=== PATIENT | female | born 1945 | race Caucasian/White ===

== ENCOUNTER → 2016-02-22 | Outpatient (CLI) | payer OTHER ==
[2016-02-22 11:19] LABS: LDL CHOLESTEROL,CALCULATED 60.6 mg/dL
== END ==
LOC: LAB 10:27
PROVIDERS: ATTEND Family Medicine
DX: E03.9 Hypothyroidism, unspecified (principal); E11.9 Type 2 diabetes mellitus without complications; E78.5 Hyperlipidemia, unspecified
CPT/HCPCS: 36415; 80061; 84443; 85018

== ENCOUNTER → 2016-02-24 | Outpatient (CLI) | payer OTHER ==
[2016-02-24 14:50] LABS: BILIRUBIN,TOTAL 0.7 mg/dL (0.3-1.2); TOTAL PROTEIN 7.7 g/dL (6.1-8.0)
[2016-02-26 06:53] LABS: HEMOGLOBIN A1C 7.42 % (4.2-6.0); MEAN BLOOD GLUCOSE (CALC) 161.086 mg/dL
== END ==
LOC: MOB LAB 12:23
PROVIDERS: ATTEND Family Medicine
DX: E11.9 Type 2 diabetes mellitus without complications (principal); E78.5 Hyperlipidemia, unspecified; R53.83 Other fatigue
CPT/HCPCS: 36415; 80076; 82306; 82550; 82728; 83036; 83540; 83550

== ENCOUNTER → 2016-03-20 | Outpatient (CLI) | payer OTHER ==
--- NOTE | 2016-03-20 21:52 | DI ---
CT BONE DENSITOMETRY OF THE SPINE AND HIP, 03/20/2016 3:37 PM : Clinical History: Asymptomatic post menopausal patient. Screening. Previous Exam: 11/14/2011. 3D Quantitative CT (QCT) Bone Mineral Densitometry: The [place] scans are normal. Low dose scans are sampled through the midbodies of L1 and L2. Average bone mineral density (BMD) is 87.4 mg/mL corresponding to a volumetric T-score of -3.1, and Z-score o f -0.1. The [employer]'s (ACR) volumetric QCT BMD conversion table categorizes thi s patient as having osteopenia of the lumbar spine. The previous exam gave a bone mineral density of 80.[address] X-Ray Absorptiometry (CTXA) Bone Mineral Densitometry of the Left Hip: Total hip BMD: 772 mg/cm2 T-score: -1.3 Z-score: 0.0 Femoral neck BMD: 667 mg/cm2 T-score: -1.2 Z-score: 0.3 Note: T-scores of the spine and hip are discordant approximately 40% of the times. Changes in actual QCT or CTXA/DEXA measurements are more reliable in assessment of change in BMD status rather than chris nges in T-scores. READIN. The QCT lumbar spine BMD value by ACR's 3D volumetric to 2D areal conversion categorizes this pat ient as having osteopenia of the lumbar spine. The QCT spine T-score is -3.1, indicating this patient has osteoporosis of the lumbar spine. 2. The CTXA total hip and femoral neck BMD T-scores are -1.3 and -1.2, respectively. The left total hip T-score indicates this patient has osteopenia of the total hip.
== END ==
LOC: CT 15:25
PROVIDERS: ATTEND Family Medicine
DX: Z78.0 Asymptomatic menopausal state (principal); Z13.820 Encounter for screening for osteoporosis
CPT/HCPCS: 77078

== ENCOUNTER → 2016-03-30 | Outpatient (CLI) | payer OTHER | LOC: MMPC 09:00 | DX: J06.9 Acute upper respiratory infection, unspecified (principal); H65.03 Acute serous otitis media, bilateral; J44.1 Chronic obstructive pulmonary disease with (acute) exacerbation; Z87.891 Personal history of nicotine dependence | CPT/HCPCS: 99213; G0463 ==

== ENCOUNTER → 2016-04-03 | Outpatient (CLI) | payer OTHER ==
--- NOTE | 2016-04-03 13:01 | DI ---
XR CXR 2VW PA/LAT,04/03/2016 12:12 PM: Clinical History: Low oxygen saturation levels. Previous Exam: September 14, 2013 Findings: PA and lateral views of the chest are obtained, and demonstrate some stable flattening of the hemidia phragms. There is density within the right middle lobe consistent with an early pneumonia. Impression: Early right middle lobe pneumonia.
== END ==
LOC: MOB RAD 12:16
PROVIDERS: ATTEND Nurse Practitioner Family
DX: R79.81 Abnormal blood-gas level (principal); J18.9 Pneumonia, unspecified organism; R05 Cough
CPT/HCPCS: 71020

== ENCOUNTER → 2016-04-04 | Outpatient (CLI) | payer OTHER | LOC: MMPC 09:00 | PROVIDERS: ATTEND Family Medicine | DX: R09.89 Other specified symptoms and signs involving the circulatory and respiratory systems (principal); R05 Cough; Z78.0 Asymptomatic menopausal state; R79.81 Abnormal blood-gas level; Z87.891 Personal history of nicotine dependence | CPT/HCPCS: 99214; G0463 ==

== ENCOUNTER → 2016-04-18 | Outpatient (CLI) | payer OTHER ==
[2016-04-18 15:48] LABS: BASOPHILS # (AUTO) 0.11 10*3/UL; BASOPHILS % (AUTO) 1.5 % (0-1); EOSINOPHILS % (AUTO) 3.7 % (0-8); HEMATOCRIT 37.6 % (37.0-47.0); HEMOGLOBIN 11.5 g/dL (12.0-16.0); IMM GRAN % (AUTO) 0.3 % (0-5); IMM GRAN# (AUTO) 0.02 10*3/UL; LYMPHOCYTES # (AUTO) 2.01 10*3/uL; LYMPHOCYTES % (AUTO) 26.6 % (10-50); MEAN CORPUSCULAR HEMOGLOBIN 28.3 PG (27-31); MEAN CORPUSCULAR HGB CONC 30.6 g/dL (33-37); MEAN PLATELET VOLUME 11.5 FL (7.4-12.2); MONOCYTES # (AUTO) 0.61 10*3/UL (0.3-0.8); MONOCYTES % (AUTO) 8.1 % (5-15); NEUTROPHILS # (AUTO) 4.53 10*3/UL; NEUTROPHILS % (AUTO) 59.8 % (50-80); RDW COEFFICIENT OF VARIATION 19.2 % (11.5-14.5); RED BLOOD COUNT 4.07 10^6/uL (4.20-5.40); WHITE BLOOD COUNT 7.56 10^3/uL (4.8-10.8)
[2016-04-18 15:54] LABS: PLATELET MORPHOLOGY COMMENT NORMAL MORPHOLOGY (NORM)
--- NOTE | 2016-04-18 16:30 | DI ---
PA /LATERAL CHEST X-RAY, 04/18/2016 1:17 PM : Clinical History: Hypoxia. Previous Exam: 04/03/2016. There is no acute soft tissue or bony abnormality. Heart size is normal. There is no acute infiltrate . On the lateral view, there is thickening versus fluid involving either the right or left major fiss ure and this is more prominent than on the previous study. Mediastinal structures are normal. There a re no pulmonary nodules. Readin. There is no acute infiltrate or effusion. No obvious evidence of underlying chronic lung disease is present. 2. Either the right or the left major fissure is more prominent. This can be secondary to fluid vers us scarring.
== END ==
LOC: LAB 15:10
PROVIDERS: ATTEND Family Medicine
DX: J18.9 Pneumonia, unspecified organism (principal); I50.9 Heart failure, unspecified
CPT/HCPCS: 36415; 71020; 83880; 85025

== ENCOUNTER → 2016-04-19 | Outpatient (CLI) | payer OTHER | LOC: MMPC 09:00 | PROVIDERS: ATTEND Family Medicine | DX: J01.30 Acute sphenoidal sinusitis, unspecified (principal); R09.02 Hypoxemia; R05 Cough | CPT/HCPCS: 99214; G0463 ==

== ENCOUNTER → 2016-05-15 | Outpatient (CLI) | payer OTHER | LOC: MMPC 09:00 | PROVIDERS: ATTEND Family Medicine | DX: E11.9 Type 2 diabetes mellitus without complications (principal); I10 Essential (primary) hypertension; E78.5 Hyperlipidemia, unspecified; R19.7 Diarrhea, unspecified; E03.9 Hypothyroidism, unspecified | CPT/HCPCS: 99214; G0463 ==

== ENCOUNTER → 2016-05-16 | Outpatient (CLI) | payer OTHER | LOC: LAB 13:06 | PROVIDERS: ATTEND Family Medicine | DX: R19.7 Diarrhea, unspecified (principal) | CPT/HCPCS: 87046; 87328; 87329; 87493 ==

== ENCOUNTER → 2016-05-25 | Outpatient (CLI) | payer OTHER ==
[2016-05-25 10:35] LABS: HEMATOCRIT 39.2 % (37.0-47.0); HEMOGLOBIN 12.2 g/dL (12.0-16.0); MEAN CORPUSCULAR HEMOGLOBIN 28.2 PG (27-31); MEAN CORPUSCULAR HGB CONC 31.1 g/dL (33-37); MEAN CORPUSCULAR VOLUME 90.7 FL (81-99); MEAN PLATELET VOLUME 11.5 FL (7.4-12.2); RED BLOOD COUNT 4.32 10^6/uL (4.20-5.40)
[2016-05-25 10:44] LABS: BLOOD UREA NITROGEN 15 mg/dL (7-22); BUN/CREATININE RATIO 18.75 (6-20); EST GLOMERULAR FILTRATION > 60 (>60 ml/min/1.73m(2))
[2016-05-25 10:45] LABS: HEMOGLOBIN A1C 8.93 % (4.2-6.0)
== END ==
LOC: LAB 10:05
PROVIDERS: ATTEND Family Medicine
DX: E11.9 Type 2 diabetes mellitus without complications (principal); E03.9 Hypothyroidism, unspecified; I10 Essential (primary) hypertension; E78.5 Hyperlipidemia, unspecified
CPT/HCPCS: 36415; 80053; 83036; 84443; 85027

== ENCOUNTER → 2016-09-19 | Outpatient (CLI) | payer OTHER ==
[2016-09-19 09:46] LABS: BLOOD UREA NITROGEN 18 mg/dL (7-22); CALCIUM 9.1 mg/dL (8.7-10.7); EST GLOMERULAR FILTRATION > 60 (>60 ml/min/1.73m(2)); HEMOGLOBIN A1C 5.95 % (4.2-6.0)
[2016-09-19 13:29] LABS: BILIRUBIN,URINE NEGATIVE (NEG); CLARITY,URINE CLEAR (CLEAR); COLOR,URINE YELLOW; GLUCOSE, URINE (UA) NEGATIVE (NEG); NITRATE,URINE NEGATIVE (NEG); OCCULT BLOOD,URINE NEGATIVE (NEG); PH,URINE 5.5 (5.0-8.5); PROTEIN,URINE NEGATIVE (NEG); UROBILINOGEN,URINE 0.2 mg/dL (0.2)
[2016-09-19 13:37] LABS: URINE SAMPLE TYPE CLEAN CATCH URINE; WBC,URINE 0-1
[2016-09-19 13:38] LABS: BACTERIA,URINE MANY; SQUAMOUS EPITHELIAL CELL,UR FEW; URINE CASTS RARE
[2016-09-19 13:41] LABS: CREATININE, URINE 188.7 MG/DL (15-500)
== END ==
LOC: LAB 09:10
PROVIDERS: ATTEND Family Medicine
DX: E11.9 Type 2 diabetes mellitus without complications (principal); R35.0 Frequency of micturition; R19.7 Diarrhea, unspecified; R82.99 Other abnormal findings in urine; Z23 Encounter for immunization
CPT/HCPCS: 36415; 80053; 81001; 82043; 83036; 87088; 90732; 99214; G0463

== ENCOUNTER → 2016-09-28 | Outpatient (CLI) | payer OTHER ==
--- NOTE | 2016-09-28 10:21 | DI ---
US ABDOMEN LIMITED,09/28/2016 8:24 AM: Clinical History: Diarrhea of unspecified type. Previous Exam: None at this facility. Findings: Multiple grayscale and color Doppler sonographic images are obtained of the right upper quadrant, and demonstrate a normal-appearing pancreas although the body and tail are not well seen. The gallbladder is normal without stones. Negative sonographic Baron's sign was obtained. The liver demonstrates diffuse increased echogenicity. The right kidney is normal measuring 9.5 cm in length without hydronephrosis nor nephrolithiasis. The aorta is within normal limits. The common bile duct measures 3 mm. Impression: Normal right upper quadrant ultrasound.
== END ==
LOC: US 08:17
PROVIDERS: ATTEND Nurse Practitioner Family
DX: R10.11 Right upper quadrant pain (principal); R19.7 Diarrhea, unspecified
CPT/HCPCS: 76705